=== PATIENT | male | born 2000 | race Two or more races ===

== ENCOUNTER 2022-06-07 19:34 | Emergency (ER) | payer MEDICAID ==
[~2022-06-07] VITALS: Ht 180.3 cm; Wt 86.0 kg
[2022-06-07 19:34] VITALS: BP 155/95
[2022-06-07] MEDS ORDERED: ACET-1079 PO (21:58)
[2022-06-07] MEDS ORDERED: MAA30LQ GT (21:58)
[2022-06-07] MEDS ORDERED: FAMO20TA10 PO (21:58)
[2022-06-07 22:00] LABS: Basophils # (auto) 0 10 ^3/uL (0-0.2); Basophils % (auto) 0.5 % (0.0-2.0); Eosinophils # (auto) 0.1 10 ^3/uL (0-0.8); Eosinophils % (auto) 0.7 % (0.0-7.0); Hemoglobin 15.8 g/dL (13.5-17.5); Lymphocytes # (auto) 1.1 10 ^3/uL (0.4-5.4); Lymphocytes % (auto) 12.2 % (10.0-50.0); Mean Corpuscular Hemoglobin 31.8 pg (28.0-32.0); Mean Corpuscular Hgb Conc. 34.3 g/dL (32.0-36.0); Mean Corpuscular Volume 92.6 fL (80.0-100.0); Monocytes # (auto) 0.6 10 ^3/uL (0-1.3); Monocytes % (auto) 6.2 % (0.0-12.0); Neutrophils # (auto) 7.2 10 ^3/uL (1.6-8.6); Neutrophils % (auto) 80.4 % (37.0-80.0); Nucleated Red Blood Cells % 0.1 %; Red Blood Cells 4.97 10^6/uL (4.5-5.90); Red Cell Distribution Width 12.4 % (11.8-14.3); White Blood Cell 8.9 10^3/uL (4.4-10.8)
[2022-06-07 22:16] LABS: Albumin 4.8 g/dL (3.4-5.0); Potassium 3.8 mmol/L (3.5-5.1)
[2022-06-07 22:22] LABS: BUN/Creatinine Ratio 14.1; Total Protein 8.4 g/dL (6.4-8.2)
== END 2022-06-08 02:21 | disposition home or self-care (01) ==
LOC: ER 19:34
DX: R07.89 Other chest pain (principal); R10.13 Epigastric pain
CPT/HCPCS: 36415; 74176; 80053; 83880; 84484; 85025; 93005

== ENCOUNTER 2024-05-08 16:22 | Emergency (ER) | payer MEDICAID, OTHER ==
[~2024-05-08] VITALS: Ht 180.3 cm; Wt 92.9 kg
[~2024-05-08 16:22] MED LIST: ACET-1079 PO; FAMO20TA10 PO; MAA30LQ GT
[2024-05-08 17:48] LABS: Urine Bacteria None Seen /hpf (None Seen)
[2024-05-08 18:21] VITALS: BP 143/83; PULSE 72; RESP 16; TEMP 99; O2SAT 97
[2024-05-08 18:32] LABS: Urine Blood Negative /uL (Negative); Urine Clarity Clear (Clear); Urine Color Light-Yellow (Yellow); Urine Protein, UAD Negative (Negative); Urine Specific Gravity 1.017 (1.001-1.035); Urine Urobilinogen Normal (Negative); Urine WBC 1 /hpf (0 - 3)
== END 2024-05-08 18:33 | disposition still patient (30) ==
LOC: ER 16:22
DX: S30.22XA Contusion of scrotum and testes, initial encounter (principal); F41.9 Anxiety disorder, unspecified; Z79.899 Other long term (current) drug therapy; W22.8XXA Striking against or struck by other objects, initial encounter; Y93.89 Activity, other specified; Y92.89 Other specified places as the place of occurrence of the external cause; Y99.0 Civilian activity done for income or pay
CPT/HCPCS: 76870; 81001